=== PATIENT | female | born 1955 | race Caucasian/White ===

== ENCOUNTER 2020-03-22 10:51 | Emergency (ER) | payer MEDICARE, MEDICAID ==
[~2020-03-22] VITALS: Ht 162.6 cm; Wt 75.0 kg
[2020-03-22 10:56] VITALS: BP 166/87
[2020-03-22] MEDS ORDERED: acetaminophen 325mg tablet PO ONE (11:25)
[2020-03-22] MEDS ORDERED: HYDR-3965 PO (11:58)
== END 2020-03-22 12:10 | disposition home or self-care (01) ==
LOC: ER 10:52
DX: S52.601A Unspecified fracture of lower end of right ulna, initial encounter for closed fracture (principal); Z88.0 Allergy status to penicillin; Z79.899 Other long term (current) drug therapy; W18.41XA Slipping, tripping and stumbling without falling due to stepping on object, initial encounter; Y93.89 Activity, other specified; Y92.89 Other specified places as the place of occurrence of the external cause; Y99.8 Other external cause status
CPT/HCPCS: 29105; 73090; 99283

== ENCOUNTER 2020-04-10 08:05 | Emergency (ER) | payer MEDICARE, MEDICAID ==
[~2020-04-10] VITALS: Ht 162.6 cm; Wt 65.5 kg
[2020-04-10] MEDS ORDERED: TETanus/Pertussis (Acell)/Diphther VAC/PF (Tdap-Adult) 0.5ml syringe IMVAC ONE (09:10)
[2020-04-10] MEDS ORDERED: LIDOcaine 1% W/epiNEPHrine 1:200,000 10ml vial IJ ONE (09:10)
[2020-04-10] MEDS ORDERED: HYDROcodone/acetaminophen 10/325mg tab PO ONE (09:45)
[2020-04-10 10:34] VITALS: BP 158/102
== END 2020-04-10 10:35 | disposition home or self-care (01) ==
LOC: ER 08:05
DX: S61.412A Laceration without foreign body of left hand, initial encounter (principal); Z88.1 Allergy status to other antibiotic agents; W26.0XXA Contact with knife, initial encounter; Y93.89 Activity, other specified; Y92.89 Other specified places as the place of occurrence of the external cause; Y99.8 Other external cause status
CPT/HCPCS: 12001; 73140; 90471; 90715; 99283

== ENCOUNTER 2020-09-19 14:57 | Emergency (ER) | payer MEDICARE, MEDICAID ==
[~2020-09-19] VITALS: Ht 162.6 cm; Wt 70.5 kg
[2020-09-19 15:18] VITALS: BP 113/70
[2020-09-19] MEDS ORDERED: BENZ-16 PO (15:37)
[2020-09-19] MEDS ORDERED: DEXA6TAB6 PO (15:37)
[2020-09-19] MEDS ORDERED: ALBU8HFA PO (15:37)
== END 2020-09-19 16:05 | disposition home or self-care (01) ==
LOC: ER 14:57
DX: U07.1 COVID-19 (principal); R06.02 Shortness of breath; F17.200 Nicotine dependence, unspecified, uncomplicated; Z88.1 Allergy status to other antibiotic agents; Z79.899 Other long term (current) drug therapy
CPT/HCPCS: 99283

== ENCOUNTER 2020-09-20 06:50 | Emergency (ER) | payer MEDICARE, MEDICAID ==
[~2020-09-20] VITALS: Ht 162.6 cm; Wt 70.4 kg
[~2020-09-20 06:50] MED LIST: ALBU8HFA PO; BENZ-16 PO; DEXA6TAB6 PO
[2020-09-20] MEDS ORDERED: CASIRIVIMAB (REGN10933) 1332MG 600 MG, IMDEVIMAB (REGN10987) 1332mg 600 MG in normal sa... IV ONE (07:05)
[2020-09-20 09:14] VITALS: BP 114/74
== END 2020-09-20 09:14 | disposition home or self-care (01) ==
LOC: ER 06:52
DX: U07.1 COVID-19 (principal); F17.200 Nicotine dependence, unspecified, uncomplicated; Z88.1 Allergy status to other antibiotic agents; Z79.899 Other long term (current) drug therapy
CPT/HCPCS: 99284; M0243; Q0243

== ENCOUNTER 2022-08-07 20:10 | Emergency (ER) | payer MEDICARE, MEDICAID ==
[~2022-08-07] VITALS: Ht 162.6 cm; Wt 61.3 kg
[~2022-08-07 20:10] MED LIST changes: -ALBU8HFA PO; -BENZ-16 PO
[2022-08-07 20:14] VITALS: BP 128/74
== END 2022-08-07 21:57 | disposition left against medical advice (07) ==
LOC: ER 20:11
DX: S99.922A Unspecified injury of left foot, initial encounter (principal); M79.675 Pain in left toe(s); Z53.21 Procedure and treatment not carried out due to patient leaving prior to being seen by health care provider; X58.XXXA Exposure to other specified factors, initial encounter; Y93.89 Activity, other specified; Y92.89 Other specified places as the place of occurrence of the external cause; Y99.8 Other external cause status
CPT/HCPCS: 73660; 99281